=== PATIENT | male | born 1965 | race Caucasian/White ===

== ENCOUNTER 2020-12-23 10:37 | Emergency (ER) | payer SELFPAY ==
[~2020-12-23] VITALS: Ht 165.1 cm; Wt 65.3 kg
[2020-12-23] MEDS ORDERED: IV NORMAL SALINE 1,000ML 1,000 ML IV ONE (11:30)
--- NOTE | 2020-12-23 11:38 | PHYS DOC ---
Past History Past Surgical History: Other Additional Past Surgical Histo: arm surgery; hand surgery; oral surgery Alcohol Use: None Social History Narrative: states "all of that", "no marijuana or meth in awhile" General Adult EDM: Chief Complaint: MULTIPLE COMPLAINTS HPI: HPI: Patient is a 55-year-old male coming in for multiple complaints spanning 3 weeks. Patient states that he has chest pain and congestion, cough, epigastric abdominal pain and subjective fevers. Patient states he has not had his Covid vaccines has not been tested. Denies any past medical history other than gomez bonilla, but does not see a doctor. Previous tobacco user. Patient states he uses marijuana and methamphetamines but has not been since he has been feeling sick. Review of Systems: Review of Systems: All other systems within normal limits except for as noted in the HPI Allergies: Allergies: Allergies Coded Allergies Type Severity Reaction Last Updated Verified No Known Drug Allergies 12/23/20 No Physical Exam: PE: Constitutional: Well developed, well nourished, no acute distress, non-toxic appearance. [] HENT: Normocephalic, atraumatic, bilateral external ears normal, nose normal. [] Eyes: PERRLA, conjunctiva normal, no discharge. [] Neck: No rigidity, supple, no stridor. [] Cardiovascular: Tachycardic, regular rhythm, brisk cap refill [] Lungs & Thorax: Non labored symmetric respirations, no tachypnea or respiratory distress [] Abdomen: Soft, nondistended. Skin: Warm, dry, no erythema, no rash. [] Back: Unremarkable Extremities: No deformities, range of motion grossly intact, no lower extremity edema [] Neurologic: Alert and oriented X 3, no focal deficits noted. [] Psychologic: Affect normal, judgement normal, mood normal. [] Current Patient Data: Vital Signs: Vital Signs Date Time Temp Pulse Resp B/P (MAP) Pulse Ox O2 Delivery O2 Flow Rate FiO2 12/23/20 10:45 97.7 113 36 161/99 99 Room Air EKG: EKG: Sinus tachycardia, left axis deviation, no ST elevation depression, no ectopy Radiology/Procedures: Radiology/Procedures: [address] [address] IMAGING REPORT Signed PATIENT: NADJA CARCAMO ACCOUNT: [id number] : 1965 LOCATION: ER AGE: 55 SEX: M EXAM STATUS: REG ER ORD. PHYSICIAN: PATRICA BUENROSTRO MD REASON: chest pain PROCEDURE: CHEST AP ONLY INDICATION: Reason: chest pain / Spl. Instructions: / History: COMPARISON: None. FINDINGS: Single view of chest obtained. Patchy opacities within the bilateral lungs. Cardiac silhouette is upper limits of normal in size. Degenerative changes of the shoulders and acromioclavicular joints as well as the spine IMPRESSION: * Bilateral patchy airspace opacity is seen. Could be infectious in nature if the patient has symptoms of infection. Another possible cause would include pulmonary vascular congestion. Electronically signed by: Bhupendra Kulkarni MD (12/23/2020 12:23 PM) [id number] DICTATED AND SIGNED BY: BHUPENDRA KULKARNI MD DATE: 12/23/20 122 CC: PATRICA BUENROSTRO MD; PCP,NO ~MTH0 0 [][place] [address] IMAGING REPORT Signed PATIENT: NADJA CARCAMO ACCOUNT: [id number] : 1965 LOCATION: ER AGE: 55 SEX: M EXAM STATUS: REG ER ORD. PHYSICIAN: PATRICA BUENROSTRO MD REASON: abd pain, distended gallbladder PROCEDURE: ABDOMEN LTD INDICATION : Reason: abd pain, distended gallbladder / Spl. Instructions: / History: COMPARISON: CT from same day TECHNIQUE: Multiple ultrasound images obtained through the abdomen in grayscale and color. FINDINGS: Pancreas: Largely obscured by bowel gas. Liver: Echotexture within normal limits in visualized portions of liver. Gallbladder: Gallstones are visualized. Gallbladder wall is approximately 2 mm. Gallbladder is distended up to about 10 cm. There is a nodular structure along the wall of the gallbladder measuring 26 x 15 mm. IVC: Partially distended at level of liver. Common Bile Duct: Not dilated. Right Kidney: No hydronephrosis. IMPRESSION: * Filling defects are identified within the gallbladder which could be secondary to stones and sludge within the lumen. A portion of this is along the wall therefore a gallbladder polyp is not excluded. If additional evaluation is desired MRI could BE obtained including MRCP images with and without contrast in order to further assess. There is also distention of the gallbladder and borderline wall thickness. Causes such as hydrops are not excluded given the di stention. There is also some pericholecystic edema seen on the CT which is not as well-seen on this ultrasound. Given the presence of gallstones if further evaluation for cholecystitis is needed nuclear hepatobiliary scan could BE obtained. Electronically signed by: Bhupendra Kulkarni MD (12/23/2020 4:08 PM) [id number] DICTATED AND SIGNED BY: BHUPENDRA KULKARNI MD DATE: 12/23/20 1557 CC: PATRICA BUENROSTRO MD; PCP,NO ~MTH0 0 Heart Score: C/O Chest Pain: Yes HEART Score for Chest Pain: HEART Score for Chest Pain Response (Comments) Value History Slighlty/Non-Suspicious 0 ECG Nonspecific Repolarizatio 1 Age >45 - < 65 1 Risk Factors 1 or 2 Risk Factors 1 Troponin < Normal Limit 0 Total 3 Risk Factors: Risk Factors: DM, Current or recent (<one month) smoker, HTN, HLP, family history of CAD, obesity. Risk Scores: Score 0 - 3: 2.5% MACE over next 6 weeks - Discharge Home Score 4 - 6: 20.3% MACE over next 6 weeks - Admit for Clinical Observation Score 7 - 10: 72.7% MACE over next 6 weeks - Early Invasive Strategies Course & Med Decision Making: Course & Med Decision Making Pertinent Labs and Imaging studies reviewed. (See chart for details) [] Nilton Disclaimer: Nilton Disclaimer: This electronic medical record was generated, in whole or in part, using a voice recognition dictation system. Departure Departure: Impression: Primary Impression: Atypical pneumonia Additional Impression: Person under investigation for COVID-19 Disposition: HOME / SELF CARE / HOMELESS Condition: STABLE Referrals: PCP,NO (PCP) Additional Instructions: You have been tested for or diagnosed with COVID-19. It is an infection caused by a new type of coronavirus. COVID-19 will cause cold-like or mild flu symptoms in most. It can cause more severe symptoms like problems breathing in some. There is no treatment for COVID-19. The body will clear the infection over time. Self-care will help to ease discomfort. Steps to Take: Self-Care Rest as needed. Healthy habits may help you feel better. Steps include: Choose healthy foods including fruits and vegetables. Drink water throughout the day. Get plenty of sleep each night. If you smoke, try to quit. It may ease breathing. Avoid alcohol. Keep Others Healthy The virus can spread to others. Droplets are released every time you sneeze or cough. The droplets can get into the mouth, nose, or eyes of people near you and lead to infection. To lower the chances of spreading COVID-19 to others: Stay at home until your doctor has said it is safe to leave. If you tested positive this will mean staying isolated until both of the following are true: At least 7 days have passed since the start of illness. You are free of fever for at least 72 hours without the use of medicine. During this time: - Avoid public areas, events, or transportation. Do not return to work or school until your doctor has said it is safe to do so. - Call ahead if you need to go to a medical center. Let them know you may have COVID-19. It will help them guide you where to go. They may also ask you to wear a facemask when you come to the office. - If you call for emergency medical services, let them know you may have COVID- 19. While at home: - Try to avoid close contact with others. Stay about 6 feet away. - If possible, spend most of your time in a separate room from others. - Use a face mask if you will be in close contact with others such as sharing a room or vehicle. - Have someone wipe down common surfaces in the home. Use household process coordinator every day on areas like doorknobs, counters, or sinks. - Cough or sneeze into a tissue. Throw the tissue away right after use. If a tissue is not available, cough or sneeze into your elbow. - Wash your hands often. Wash them after sneezing or coughing. Use soap and water and wash for at least 20 seconds. Alcohol based hand cutch cleaner can be used if soap and water is not available. - Do not prepare food for others. Avoid sharing personal items like forks, spoons, or toothbrushes. - Avoid close contact with pets while you are sick. There is no evidence of the virus passing to pets. This is a safety step until more is known about this virus. Isolation can be frustrating. Social interaction can help. Keep in touch with friends and family through phone and tech options. You can still interact with others in your home, just keep a safe distance of about 6 feet. Follow-up: Your doctors office will check in with you to see if there are any changes in your health. You may be asked to keep track of symptoms to share with them. They will also let you know when you are clear to be in public again. Problems to Look Out For: Contact your doctor if your recovery is not going as you expect. Get emergency care if you have problems such as: - Trouble breathing - Nonstop chest pain or pressure - Changes in awareness, confusion, or problems waking - Lips or face have bluish color - Worsening of symptoms If you think you have an emergency, call for emergency medical services right away. As taken from [facility] Doxycycline Monohydrate (DOXYCYCLINE MONOHYDRATE) 100 Mg Capsule 1 CAP PO BID for antibiotic for 5 Days, #10 CAP Prov: PATRICA BUENROSTRO MD 12/23/20 Prednisone (PREDNISONE) 50 Mg Tablet 1 TAB PO DAILY for steroid for 5 Days, #5 TAB You received this medication in the emergency room today. You will starting your next dose tomorrow. Prov: PATRICA BUENROSTRO MD 12/23/20 PATRICA BUENROSTRO MD Dec 23, 2020 11:38
--- NOTE | 2020-12-23 12:26 | RAD ---
INDICATION: Reason: chest pain / Spl. Instructions: / History: COMPARISON: None. FINDINGS: Single view of chest obtained. Patchy opacities within the bilateral lungs. Cardiac silhouette is upper limits of normal in size. Degenerative changes of the shoulders and acromioclavicular joints as well as the spine IMPRESSION: * Bilateral patchy airspace opacity is seen. Could be infectious in nature if the patient has sympto ms of infection. Another possible cause would include pulmonary vascular congestion. Electronically signed by: Manoj Yarbrough MD (12/23/2020 12:23 PM) [id number]
[2020-12-23 12:33] LABS: BASO % 0 % (0-3); EOS % 1 % (0-3); HEMATOCRIT 43.3 % (39.0-53.0); HEMOGLOBIN 14.7 g/dL (13.0-17.5); LYMPH # 0.8 x10^3/uL (1.0-4.8); LYMPH % 10 % (24-48); MEAN CORPUSCULAR HEMOGLOBIN 31 pg (25-35); MEAN CORPUSCULAR HGB CONC 34 g/dL (31-37); MEAN CORPUSCULAR VOLUME 90 fL (79-100); MONO # 0.7 x10^3/uL (0.0-1.1); MONO % 8 % (0-9); NEUT % 81 % (31-73); PLATELET COUNT 401 x10^3/uL (140-400); RED BLOOD COUNT 4.81 x10^6/uL (4.30-5.70); WHITE BLOOD COUNT 8.6 x10^3/uL (4.0-11.0)
[2020-12-23 12:43] LABS: CALCIUM 9.1 mg/dL (8.5-10.1); CREATININE 1.1 mg/dL (0.7-1.3); GFR 69.2; POTASSIUM 4.4 mmol/L (3.5-5.1)
[2020-12-23 12:57] LABS: ALBUMIN/GLOBULIN RATIO 0.8 (1.0-1.7); MAGNESIUM 1.9 mg/dL (1.8-2.4); PHOSPHORUS 2.1 mg/dL (2.6-4.7); TOTAL BILIRUBIN 0.5 mg/dL (0.2-1.0); TOTAL PROTEIN 6.8 g/dL (6.4-8.2)
[2020-12-23] MEDS ORDERED: ACETAMINOPHEN 500 MG TABLET PO ONE (13:00)
[2020-12-23 13:15] LABS: BILIRUBIN,URINE NEG (NEG); CLARITY,URINE CLEAR; COLOR,URINE YELLOW; GLUCOSE,URINE NEG (NEG); NITRITE,URINE NEG (NEG); UROBILINOGEN,URINE 0.2 mg/dL (0.2 mg/dL)
[2020-12-23 13:16] LABS: BACTERIA,URINE 0 /HPF (0-FEW); RBC,URINE RARE /HPF (0-2); WBC,URINE RARE /HPF (0-4)
[2020-12-23 13:19] LABS: BARBITURATES NEG (NEG); BENZODIAZEPINES NEG (NEG); CANNABINOIDS POS (NEG); COCAINE POS (NEG); METHADONE NEG (NEG); OPIATES NEG (NEG); PHENCYCLIDINE NEG (NEG)
[2020-12-23 13:21] LABS: AMPHETAMINE/METHAMPHETAMINE POS (NEG)
[2020-12-23] MEDS ORDERED: IOHEXOL 350 MG/ML 100 ML VIAL. IV ONE (13:30)
[2020-12-23] MEDS ORDERED: MORPHINE SULFATE 4 MG/ML DISP.SYRIN. ONE (13:51)
[2020-12-23] MEDS ORDERED: MORPHINE SULFATE 4 MG/ML DISP.SYRIN. IV ONE (14:00)
--- NOTE | 2020-12-23 15:07 | RAD ---
CTA CHEST_ABDOMEN_AND PELVIS History: Dyspnea, chest pain, elevated d-dimer, abdominal pain. Comparison: None. Technique: CT angiogram pulmonary arteries with delayed phase images of the abdomen and pelvis. Coron al and sagittal 3-D maximum intensity projection reformats were provided. Findings: Pulmonary arteries normal in caliber. There is no pulmonary embolism. No aortic aneurysm or dissectio n. Mild cardiac enlargement with moderate calcifications of the left anterior descending coronary art kenneth. Peripherally calcified right thyroid nodule. Patulous esophagus containing fluid. There is an en larged or centimeters short axis AP window lymph node. The airways are patent. Patchy airspace opacities involving the left upper lobe, left lower lobe, rig ht middle lobe and right lower lobe. No pleural effusion or pneumothorax. A few tiny hypodensities within the liver too small to characterize most likely cysts or hemangiomas. Distended gallbladder. Unremarkable pancreas, spleen, and adrenal glands. Right upper pole renal cys t. Left lower pole 3 mm nephrolith. No hydronephrosis or hydroureter. The bladder is within normal li mits. The central prostate calcifications. Small hiatal hernia. The small bowel is unremarkable. Normal appendix. Sigmoid diverticulosis without evidence for diverticulitis. No abdominopelvic adenopathy. Vasculature is unremarkable. Soft tissues are within normal limits. Mild anterior wedging at T12. There are multilevel degenerative changes of the lumbar spine. Mild retrolisthesis of L1 on L2 and L2 on L3. Levoconvex curvature of the lumbar s pine. Multilevel disc space narrowing and facet hypertrophy. No acute or suspicious lesions. Impression: 1. No pulmonary embolism. 2. Multifocal airspace opacities most likely represent infectious process including Covid pneumonia. 3. Left nephrolithiasis without hydronephrosis and sigmoid diverticulosis without diverticulitis. 4. Prominent distended gallbladder. Correlate for right upper quadrant symptoms. ------ Exposure: One or more of the following individualized dose reduction techniques were utilized for thi s examination: 1. Automated exposure control 2. Adjustment of the mA and/or kV according to patient size 3. Use of iterative reconstruction technique. Electronically signed by: Galileo De La Paz MD (12/23/2020 3:05 PM) [facility]
--- NOTE | 2020-12-23 16:11 | RAD ---
INDICATION : Reason: abd pain, distended gallbladder / Spl. Instructions: / History: COMPARISON: CT from same day TECHNIQUE: Multiple ultrasound images obtained through the abdomen in grayscale and color. FINDINGS: Pancreas: Largely obscured by bowel gas. Liver: Echotexture within normal limits in visualized portions of liver. Gallbladder: Gallstones are visualized. Gallbladder wall is approximately 2 mm. Gallbladder is disten ded up to about 10 cm. There is a nodular structure along the wall of the gallbladder measuring 26 x 15 mm. IVC: Partially distended at level of liver. Common Bile Duct: Not dilated. Right Kidney: No hydronephrosis. IMPRESSION: * Filling defects are identified within the gallbladder which could be secondary to stones and slud ge within the lumen. A portion of this is along the wall therefore a gallbladder polyp is not exclude d. If additional evaluation is desired MRI could BE obtained including MRCP images with and without c ontrast in order to further assess. There is also distention of the gallbladder and borderline wall t hickness. Causes such as hydrops are not excluded given the distention. There is also some pericholec ystic edema seen on the CT which is not as well-seen on this ultrasound. Given the presence of gallst ones if further evaluation for cholecystitis is needed nuclear hepatobiliary scan could BE obtained. Electronically signed by: Manoj Yarbrough MD (12/23/2020 4:08 PM) [id number]
[2020-12-23] MEDS ORDERED: DOXY-181 PO (16:28)
[2020-12-23] MEDS ORDERED: PRED50TA PO (16:28)
[2020-12-23 17:03] VITALS: BP 135/91
--- NOTE | 2020-12-26 10:13 | NUR ---
IP: Attempted to contact pt concerning covid results. Phone not accepting calls at this time.
--- NOTE | 2020-12-26 13:29 | EKG ---
[address] [address] Test Date: 2020-12-23 Test Time: 10:53:36 Pat Name: NADJA CARCAMO Department: Room: Gender: M Property Claims Manager: PIERO : 1965 Requested By: PATRICA BUENROSTRO Order Number: [id number] Reading MD: Measurements Intervals Keo Rate: 108 P: 62 MN: 146 QRS: -11 QRSD: 72 T: 34 QT: 322 QTc: 435 Interpretive Statements SINUS TACHYCARDIA LEFTWARD AXIS OTHERWISE NORMAL ECG RI6.02 No previous ECG available for comparison
== END 2020-12-23 17:03 | disposition home or self-care (01) ==
LOC: ER 10:37
DX: J18.9 Pneumonia, unspecified organism (principal); Z20.822 Contact with and (suspected) exposure to COVID-19
CPT/HCPCS: 71045; 71275; 74177; 76705; 80053; 80307; 81001; 83605; 83690; 83735; 83880; 84100; 84484; 85025; 85379; 87426; 93005; 96361; 96374; 96375; 99285; C9803; G0480; J2270; J3010; J7030; Q9967; U0003